=== PATIENT | female | born 1975 | race Two or more races ===

== ENCOUNTER → 2024-05-28 | Outpatient (CLI) | payer MEDICAID, SELFPAY ==
--- NOTE | 2024-05-28 10:32 | XR_ITS ---
Examination: Abdomen AP single view Technique: AP portable supine abdomen, single view Exam date and time: May 28, 2024, 11:00 AM. INDICATIONS: Abdominal pain 2 years. FINDINGS: Nonobstructive bowel gas pattern. No free air. No renal or ureteral calculi. IMPRESSION: Nonobstructive bowel gas pattern
== END | disposition home or self-care (01) ==
LOC: CDIM 10:06
PROVIDERS: PCP Family Medicine; Referring Provider Family Medicine; Visit Provider Family Medicine
DX: N20.0 Calculus of kidney (principal)
CPT/HCPCS: 74018

== ENCOUNTER → 2024-06-25 | Outpatient (BNVA) | payer MEDICAID, SELFPAY | END | disposition home or self-care (01) | PROVIDERS: PCP Internal Medicine; Referring Provider Internal Medicine; Visit Provider Urology | DX: N20.0 Calculus of kidney (principal); Z87.442 Personal history of urinary calculi; E66.9 Obesity, unspecified; Z68.28 Body mass index [BMI] 28.0-28.9, adult | CPT/HCPCS: 81003; 99213; G0463 ==

== ENCOUNTER → 2024-08-05 | Outpatient (CLI) | payer MEDICAID, SELFPAY ==
[2024-08-04 16:52] LABS: HCG Qualitative,Urine Negative
--- NOTE | 2024-08-05 08:00 | XR_ITS ---
Examination: CT abdomen and pelvis without contrast. Coronal 3-D reconstructions. Sagittal 2-D reconstructions. Date and time of exam:August 05, 2024 0755 hours Comparison July 07, 2021 INDICATIONS: Right upper abdominal pain left upper abdominal pain beginning 3 months ago history kidney stones CTDI: vol (mGy): 6.91 DLP: (mGycm): 316 Technique: Axial images of the abdomen have been obtained, 3 mm slice thickness Intravenous contrast material has not been administered. Low dose protocols were performed. One or more of the following dose reduction techniques were used; automated exposure control, adjustment of the mA and/or KV according to patient size, use of iterative reconstruction technique. Findings: No liver splenic lesion No gallstones No pancreatic or adrenal mass Bilateral 1 to 3 mm renal calculi, no hydronephrosis or ureteral calculi Normal appendix No bowel obstruction No pelvic mass No bladder mass or bladder calculi Mild osteopenia IMPRESSION: Bilateral small nonobstructing renal calculi No hydronephrosis or ureteral calculi No bladder mass or bladder calculi
== END | disposition home or self-care (01) ==
LOC: CCTX 07:13
PROVIDERS: PCP Family Medicine; Referring Provider Urology; Visit Provider Urology
DX: N20.0 Calculus of kidney (principal); Z32.00 Encounter for pregnancy test, result unknown
CPT/HCPCS: 74176; 81025

== ENCOUNTER → 2024-09-25 | Outpatient (BNVA) | payer MEDICAID, SELFPAY | END | disposition home or self-care (01) | PROVIDERS: PCP Internal Medicine; Referring Provider Internal Medicine; Visit Provider Urology | DX: N20.0 Calculus of kidney (principal); Z87.442 Personal history of urinary calculi | CPT/HCPCS: 81003; 99212; G0463 ==